=== PATIENT | female | born 1955 | race Caucasian/White ===

== ENCOUNTER 2019-08-04 12:43 | Emergency (ER) | payer BC ==
[2019-08-04] MEDS ORDERED: Hydromorphone 1 mg/ml Ampule IV ONE (13:07)
[2019-08-04] MEDS ORDERED: Zofran 4 MG/2 ML VIAL IV ONE (13:07)
[2019-08-04] MEDS ORDERED: Sodium Chloride 0.9% 1000 ML 1,000 ML IV STA (13:07)
[2019-08-04] MEDS ORDERED: TORAdol 30 mg Injection IV ONE (13:07)
[2019-08-04] MEDS ORDERED: Sodium Chloride 0.9% 1000 ML 1,000 ML ONE (13:13)
[2019-08-04] MEDS ORDERED: Zofran 4 MG/2 ML VIAL ONE (13:13)
[2019-08-04] MEDS ORDERED: Hydromorphone 1 mg/ml Ampule ONE (13:13)
[2019-08-04] MEDS ORDERED: TORAdol 30 mg Injection ONE (13:13)
[2019-08-04 13:23] VITALS: O2SAT 98
[2019-08-04 13:34] LABS: Absolute Neutrophil Ct (ANC) 4.32 (1.4-6.9); BASOPHIL % 0.2 % (0.0-0.4); Basophil (Absolute #) 0.02 (0-0.4); Eosinophil % 1.4 % (0.00-5.0); Eosinophil (Absolute #) 0.12 (0-0.5); Hematocrit 42.7 % (35-47); Lymphocyte (Absolute #) 3.14 (1.0-4.6); Lymphocytes % 37.4 % (24.0-44.0); Mean Cell Volume 89.1 fl (78-100); Mean Corpuscular Hemoglobin 29.2 pg (26-32); Mean Corpuscular Hgb Concent. 32.8 g/dl (32-36); Mean Platelet Volume 11.3 fl (7.5-11.0); Monocyte (Absolute #) 0.79 (0.0-1.3); Monocytes % 9.4 % (0.0-12.0); Neutrophil % 51.6 % (36.0-66.0); Platelet Count 262 K/mm3 (150-450); Red Blood Count 4.79 M/mm3 (4.1-5.4); Red Cell Distribution Width 13.6 % (11.5-14.0); White Blood Count 8.4 K/mm3 (4.0-10.5)
[2019-08-04 13:53] LABS: INR 1.03 (0.8-3.0); PROTIME 11.7 SECONDS (9.95-12.35)
--- NOTE | 2019-08-04 13:54 | XRAY ---
Indication: Right flank pain. Multiple contiguous axial images obtained through the abdomen and pelvis without contrast as ordered. Comparison: None Lung bases demonstrates minimal bibasilar atelectasis/scarring. No infiltrate or effusion. Heart is not enlarged. Small hiatal hernia. Noncontrasted stomach and bowel loops appear nonobstructed. Normal appendix. There is mild diffuse scattered colonic fecal debris throughout including rectum. Gallbladder demonstrates a 2.5 cm stone without abnormal biliary distention. No free fluid/air. There is a 2-3 mm right UPJ calculus with mild hydronephrosis but no perinephric fluid. Remaining liver, gallbladder, pancreas, spleen, adrenal glands, left kidney, left ureter, bladder, uterus, and aorta appear unremarkable for noncontrast exam. Osseous structures intact. Small fatty umbilical hernia. Impression: 1. 2-3 mm right UPJ calculus producing partial obstructive uropathy. 2. 2.5 cm gallstone without abnormal biliary distention. 3. Mild diffuse fecal stasis without obstruction. 4. Small hiatal hernia.
[2019-08-04 13:57] LABS: ALBUMIN 4.6 g/dL (3.5-5.0); ALKALINE PHOSPHATASE 113 U/L (38-126); AMYLASE 96 U/L (30-110); BLOOD UREA NITROGEN 17 mg/dL (7-17); CHLORIDE 105 mmol/L (98-107); Calcium 10.3 mg/dL (8.4-10.2); Carbon Dioxide 28 mmol/L (22-30); Creatinine 1 0.63 mg/dL (0.52-1.04); Glucose 127 mg/dL (74-106); LIPASE 166 U/L (23-300); Potassium 3.5 mmol/L (3.5-5.1); SGOT/AST 22 U/L (14-36); SGPT/ALT 19 U/L (0-35); SODIUM 141 mmol/L (137-145); Total Protein 7.8 g/dL (6.3-8.2)
--- NOTE | 2019-08-04 14:41 | ERPHSYRPT ---
- History of Present Illness Time Seen by Provider: 08/04/19 13:25 Historian: patient Exam Limitations: no limitations Patient Subjective Stated Complaint: Pt states "About and hour ago I started to have right lower abdominal pain that went into my back." Triage Nursing Assessment: Ptpresented alert and oriented X 3, skin pwd. PT unable to sit still, moaning and guarding her right side. PT vomited X 2. Pt crying. Physician History: Is a 64-year-old female who presents with a sudden onset of right lower quadrant right groin pain. She noted blood in her urine. She had nausea and did vomit upon arrival Timing/Duration: today Activities at Onset: none Quality: sharpness, stabbing Abdominal Pain Onset Location: RLQ, flank Pain Radiation: no radiation Severity of Pain-Max: severe Severity of Pain-Current: severe Modifying Factors: Improves With: nothing Associated Symptoms: denies symptoms Previous symptoms: no prior history Allergies/Adverse Reactions: bacitracin [From Neosporin ([id number])] Allergy (Intermediate, Verified 04/24 13:23) Rash latex Allergy (Intermediate, Verified 08/04/19 13:23) Rash neomycin [From Neosporin ([id number])] Allergy (Intermediate, Verified 13:23) Rash polymyxin B [From Neosporin ([id number])] Allergy (Intermediate, Verified 04/24 13:23) Rash Home Medications: Levothyroxine Sodium 75 Mcg [Synthroid 75 Mcg] 75 mcg PO DAILY 08/04/19 [ History] Hx Tetanus, Diphtheria Vaccination/Date Given: Yes Hx Influenza Vaccination/Date Given: Yes Hx Pneumococcal Vaccination/Date Given: No Immunizations Up to Date: Yes Travel Risk - International Travel Have you traveled outside of the country in past 3 weeks: No Have you or anyone close to you been diagnosed with or: No Do your reside in a community with a known COVID-19 case?: Yes If Yes where:: [place] - Coronavirus Screening Has patient experienced Coronavirus symptoms: No - Review of Systems Constitutional: No Fever, No Chills Eyes: No Symptoms Ears, Nose, & Throat: No Symptoms Respiratory: No Cough, No Dyspnea Cardiac: No Chest Pain, No Edema, No Syncope Abdominal/Gastrointestinal: Abdominal Pain, Nausea, Vomiting, No Diarrhea Genitourinary Symptoms: Hematuria, Flank Pain, No Dysuria Musculoskeletal: No Back Pain, No Neck Pain Skin: No Rash Neurological: No Dizziness, No Focal Weakness, No Sensory Changes Psychological: No Symptoms Endocrine: No Symptoms All Other Systems: Reviewed and Negative - Past Medical History Pertinent Past Medical History: Yes Neurological History: No Pertinent History ENT History: No Pertinent History Cardiac History: No Pertinent History Respiratory History: No Pertinent History Endocrine Medical History: Hypothyroidism Musculoskeletal History: No Pertinent History GI Medical History: No Pertinent History History: No Pertinent History Psycho-Social History: No Pertinent History Female Reproductive Disorders: No Pertinent History - Past Surgical History Past Surgical History: No - Social History Smoking Status: Never smoker Exposure to second hand smoke: No Drug Use: none Patient Lives Alone: No - Nursing Vital Signs Nursing Vital Signs: Initial Vital Signs Temperature 98.6 F 08/04/19 13:18 Pulse Rate 68 08/04/19 13:18 Respiratory Rate 24 08/04/19 13:18 Blood Pressure 183/99 08/04/19 13:18 O2 Sat by Pulse Oximetry 98 08/04/19 13:18 Pain Scale Pain Intensity 4 - Physical Exam General Appearance: severe distress, alert Eye Exam: PERRL/EOMI, eyes nml inspection Ears, Nose, Throat Exam: normal ENT inspection, pharynx normal, moist mucous membranes Neck Exam: normal inspection, non-tender, supple, full range of motion Respiratory Exam: normal breath sounds, lungs clear, No respiratory distress Cardiovascular Exam: regular rate/rhythm, normal heart sounds Gastrointestinal/Abdomen Exam: soft, No tenderness, No mass Back Exam: normal inspection, normal range of motion, No CVA tenderness, No vertebral tenderness Extremity Exam: normal inspection, normal range of motion, pelvis stable Neurologic Exam: alert, oriented x 3, cooperative, normal mood/affect, nml cerebellar function, sensation nml, No motor deficits Skin Exam: normal color, warm, dry SpO2: 98 - Course Nursing assessment & vital signs reviewed: Yes - CT Exams Abdomen/Pelvis CT Interpretation: Other (Cholelithiasis and ureterolithiasis on the right) Ordered Tests: Active Orders 24 hr Category Date Time Status IV Insertion STAT Care 08/04/19 13:07 Active ABDOMEN AND PELVIS W/0 CONTRAS [CT] Stat Exams 08/04/19 13:08 Completed AMYLASE Stat Lab 08/04/19 13:20 Completed CBC W DIFF Stat Lab 08/04/19 13:20 Completed CMP Stat Lab 08/04/19 13:20 Completed LIPASE Stat Lab 08/04/19 13:20 Completed Lactic Acid Stat Lab 08/04/19 13:07 Ordered PROTIME WITH INR Stat Lab 08/04/19 13:20 Completed Medication Summary Discontinued Medications Generic Name Dose Route Start Last Admin Trade Name Freq PRN Reason Stop Dose Admin Hydromorphone HCl 1 mg 08/04/19 13:07 08/04/19 13:15 Hydromorphone 1 Mg/Ml Ampule IV 08/04/19 13:08 1 mg STAT ONE Administration Hydromorphone HCl Confirm 08/04/19 13:13 Hydromorphone 1 Mg/Ml Ampule Administered 08/04/19 13:14 Dose 1 mg .ROUTE .STK-MED ONE Sodium Chloride 1,000 mls @ 999 mls/hr 08/04/19 13:07 08/04/19 14:21 Sodium Chloride 0.9% 1000 Ml IV 08/04/19 14:07 Infused .Q1H1M STA Infusion Sodium Chloride Confirm 08/04/19 13:13 Sodium Chloride 0.9% 1000 Ml Administered 08/04/19 13:14 Dose 1,000 mls @ ud .ROUTE .STK-MED ONE Ketorolac Tromethamine 30 mg 08/04/19 13:07 08/04/19 13:15 Toradol 30 Mg Injection IV 08/04/19 13:08 30 mg STAT ONE Administration Ketorolac Tromethamine Confirm 08/04/19 13:13 Toradol 30 Mg Injection Administered 08/04/19 13:14 Dose 30 mg .ROUTE .STK-MED ONE Ondansetron HCl 4 mg 08/04/19 13:07 08/04/19 13:15 Zofran 4 Mg/2 Ml Vial IV 08/04/19 13:08 4 mg STAT ONE Administration Ondansetron HCl Confirm 08/04/19 13:13 Zofran 4 Mg/2 Ml Vial Administered 08/04/19 13:14 Dose 4 mg .ROUTE .STK-MED ONE Lab/Rad Data: Laboratory Result Diagrams 08/04/19 13:20 08/04/19 13:20 Laboratory Results 08/04/19 08/04/19 08/04/19 Range/Units 13:20 13:20 13:20 WBC 8.4 (4.0-10.5) K/mm3 RBC 4.79 (4.1-5.4) M/mm3 Hgb 14.0 (12.0-16.0) gm/dl Hct 42.7 (35-47) % MCV 89.1 (78-100) fl MCH 29.2 (26-32) pg MCHC 32.8 (32-36) g/dl RDW 13.6 (11.5-14.0) % Plt Count 262 (150-450) K/mm3 MPV 11.3 H (7.5-11.0) fl Gran % 51.6 (36.0-66.0) % Eos # (Auto) 0.12 (0-0.5) Absolute Lymphs (auto) 3.14 (1.0-4.6) Absolute Monos (auto) 0.79 (0.0-1.3) Lymphocytes % 37.4 (24.0-44.0) % Monocytes % 9.4 (0.0-12.0) % Eosinophils % 1.4 (0.00-5.0) % Basophils % 0.2 (0.0-0.4) % Absolute Granulocytes 4.32 (1.4-6.9) Basophils # 0.02 (0-0.4) PT 11.7 (9.95-12.35) SECONDS INR 1.03 (0.8-3.0) Sodium 141 (137-145) mmol/L Potassium 3.5 (3.5-5.1) mmol/L Chloride 105 (98-107) mmol/L Carbon Dioxide 28 (22-30) mmol/L Anion Gap 12.0 (5-15) MEQ/L BUN 17 (7-17) mg/dL Creatinine 0.63 (0.52-1.04) mg/dL Estimated GFR > 60.0 ML/MIN Glucose 127 H (74-106) mg/dL Calcium 10.3 H (8.4-10.2) mg/dL Total Bilirubin 0.50 (0.2-1.3) mg/dL AST 22 (14-36) U/L ALT 19 (0-35) U/L Alkaline Phosphatase 113 (38-126) U/L Serum Total Protein 7.8 (6.3-8.2) g/dL Albumin 4.6 (3.5-5.0) g/dL Amylase 96 (30-110) U/L Lipase 166 (23-300) U/L - Progress Progress: improved - Departure Departure Disposition: Home Clinical Impression: Ureteral calculus, right Condition: Stable Critical Care Time: No Referrals: UMER PORRAS MD [Primary Care Provider] - Instructions: Kidney Stones (DC), Flank Pain Prescriptions: Hydrocodone/Acetaminophen [[place] 10-325 Tablet] 1 each PO Q6H PRN 3 Days #12 tablet MDD 4 PRN Reason: Pain Tamsulosin HCl 0.4 mg [Flomax 0.4 MG] 0.4 mg PO DAILY 10 Days #10 cap
[2019-08-04 14:45] VITALS: BP 146/99; PULSE 83
== END 2019-08-04 15:00 | disposition home or self-care (01) ==
LOC: ED 12:43
DX: N20.1 Calculus of ureter (principal); E03.9 Hypothyroidism, unspecified; R10.31 Right lower quadrant pain
CPT/HCPCS: 36000; 36415; 74176; 80053; 82150; 83605; 83690; 85025; 85610; 96360; 96374; 96375; 99284; J1170; J1885; J2405